=== PATIENT | male | born 1990 | race Caucasian/White ===

== ENCOUNTER 2018-12-23 12:15 | Emergency (ER) | payer OTHER ==
[2018-12-23] MEDS ORDERED: ONDANSETRON HCL/PF 4 MG/ 2ML VIAL ONE (12:23)
[2018-12-23] MEDS ORDERED: KETOROLAC TROMETHAMINE 30 MG/1ML VIAL IV ONE (12:25)
[2018-12-23] MEDS ORDERED: 0.9 % SODIUM CHLORIDE 1,000 ML IV ONE ×3 (12:25→13:41)
[2018-12-23] MEDS ORDERED: ONDANSETRON HCL/PF 4 MG/ 2ML VIAL IVP ONE ×2 (12:25→14:09)
[2018-12-23] MEDS ORDERED: KETOROLAC TROMETHAMINE 30 MG/1ML VIAL ONE (12:25)
--- NOTE | 2018-12-23 12:25 | ED Physician Documentation ---
General Adult - HISTORIAN Historian: patient - HPI Stated Complaint: R flank pain Chief Complaint: General Adult Onset: hours Timing: still present Severity: moderate Further Comments: yes (Pt is a 28 yo male with L flank pain and hx kidney stone. No other significant PMHx. Pain radiates to L groin.) - ROS CONST: no problems EYES/ENT: none CVS/RESP: none GI/: abdominal pain, vomiting, nausea MS/SKIN/LYMPH: none - PAST HX Past History: other (kidney stone) Surgeries/Procedures: other (sinus surgery) Allergies/Adverse Reactions: Allergies Allergy/AdvReac Type Severity Reaction Status Date / Time No Known Allergies Allergy Verified 12/23/18 12:41 Home Medications: Ambulatory Orders Medication Instructions Recorded NK 12/23/18 - SOCIAL HX Smoking History: non-smoker Alcohol Use: occasionally Drug Use: marijuana - FAMILY HX Family History: No - REVIEWED ASSESSMENTS Nursing Assessment Reviewed: Yes Vitals Reviewed: Yes Progress - Progress Progress: Toradol 30 mg IV Zofran 4 mg IV x2 Fentanyl [address] abd/pelvis: There are 2 tiny 1-2 mm calyceal stones of the left kidney. here is mild left hydronephrosis and left hydroureter. Within the bladder at the UVJ, there is a 2-3 mm stone which is passing. D/c instructions: Rx Ketorolac 10 mg. Take one by mouth every 6 hours as needed for pain. Maximum 4 per day. Rx Zofran 4 mg ODT. Take one by mouth every 8 hours as needed for nausea. Rx Flomax 0.4 mg. Take one by mouth once daily for 3 days or until kidney stone passes. General Adult Physical Exam - PHYSICAL EXAM GENERAL APPEARANCE: moderate distress EENT: pharynx normal NECK: normal inspection, supple RESPIRATORY: no resp distress, chest non-tender, breath sounds normal CVS: reg rate & rhythm, heart sounds normal, equal pulses ABDOMEN: normal bowel sounds, tenderness. No: rebound, guarding BACK: normal inspection, no CVA tenderness SKIN: warm/dry, normal color EXTREMITIES: non-tender, normal range of motion, no evidence of injury NEURO: oriented X3, motor nml, sensation nml Discharge Clincal Impression: Nephrolithiasis Referrals: Primary Doctor,No [Primary Care Provider] - Condition: Stable Disposition: 01 HOME, SELF-CARE Decision to Admit: NO Decision Time: 14:58
[2018-12-23] MEDS ORDERED: fentaNYL CITRATE/PF 100 MCG/2 ML INJ. IV ONE (12:32)
[2018-12-23 13:06] LABS: eGFR (Non-African) > 60
[2018-12-23 13:07] LABS: MEAN CORPUSCULAR HEMOGLOBIN 31.1 pg (28.0-34.0)
[2018-12-23 13:08] LABS: BASOPHILS % 1.6 (0.0-1.5); EOSINOPHILS % 4.4 % (0.0-6.8); MONOCYTES % 6.1 % (0.0-11.0); NEUTROPHILS # 5.4 # k/uL (1.4-7.7)
[2018-12-23] MEDS ORDERED: TAMSULOSIN HCL 0.4 MG CAP.ER.24H PO ONE (13:40)
--- NOTE | 2018-12-23 13:45 | Diagnostic Imaging Report ---
MILADIS HERRERA [facility] [id number] [facility] [address] [place], [place]. [address] Report Submission Date: Dec 23, 2018 1:37:25 PM CDT Patient Study Name: RONALDO MONROY Date: Dec 23, 2018 12:54:37 PM CDT Modality Type: CT Gender: M Description: CT ABD PELVIS W/O CO : 92 Institution: [facility] Physician: MILADIS HERRERA CT ABDOMEN AND PELVIS WITHOUT CONTRAST HISTORY: Left groin pain Comparison: None TECHNIQUE: Helically acquired images were obtained from the hemidiaphragms to the pelvic floor without IV contrast using a stone protocol. FINDINGS: On these images without IV contrast, which limits solid organ evaluation, the liver, spleen, adrenal glands, gallbladder, pancreas and appendix are normal. The abdominal aorta is normal in caliber. The right kidney is unremarkable without hydronephrosis, evident mass or intrarenal stones. The left kidney demonstrates mild hydronephrosis. There is a 2 mm calyceal stone as well as a 1 mm calyceal stone of the left kidney. There is mild left hydroureter. Within the bladder at the UVJ, there is a 2-3 mm passing stone. Otherwise, the bladder is unremarkable. The seminal vesicles and prostate gland are unremarkable. Small and large bowel loops are normal in caliber. Lung bases are clear. There is a small bone lesion with internal trabecula involving the L3 vertebral body measuring 1.4 cm, consistent with a small hemangioma. Lung bases are clear. Impression: There are 2 tiny 1-2 mm calyceal stones of the left kidney. There is mild left hydronephrosis and left hydroureter. Within the bladder at the UVJ, there is a 2-3 mm stone which is passing. Electronically signed on Dec 23, 2018 1:37:25 PM CDT by: Elsie GALLEGOS
[2018-12-23 15:23] VITALS: BP 122/67
[2018-12-23 18:33] LABS: APPEARANCE,URINE CLEAR (CLEAR); COLOR,URINE AMBER (YELLOW); OCCULT BLOOD,URINE 2+ (NEGATIVE); UROBILINOGEN URINE 0.2 Eu (0.2-1.0)
== END 2018-12-23 15:21 | disposition home or self-care (01) ==
LOC: ED 12:15
DX: N20.0 Calculus of kidney (principal); N13.30 Unspecified hydronephrosis
CPT/HCPCS: 36415; 74176; 80053; 81002; 85025; 96374; 96375; 99283; 99284; J1885; J2405; J3010; J7030; S1016